=== PATIENT | female | born 1955 | race Caucasian/White ===

== ENCOUNTER 2018-12-26 08:59 | Day surgery (SDC) | payer MEDICARE, OTHER ==
[~2018-12-26] VITALS: Ht 147.3 cm; Wt 70.7 kg
[2018-12-26] MEDS ORDERED: LOSA50TA14 PO (09:29)
[2018-12-26] MEDS ORDERED: METO25TA4 PO (09:29)
[2018-12-26] MEDS ORDERED: LEVO125T7 PO (09:29)
[2018-12-26] MEDS ORDERED: METF-163 PO (09:29)
[2018-12-26] MEDS ORDERED: ASPI325T30 PO (09:29)
[2018-12-26] MEDS ORDERED: ATOR40TA68 PO (09:29)
[2018-12-26 09:30] VITALS: Ht 147.3 cm; Wt 70.7 kg
[2018-12-26 09:51] VITALS: BP 129/62; PULSE 68; RESP 18
--- NOTE | 2018-12-26 10:00 | PREAC ---
Date/Time of Note Date/Time of Note DATE: 12/26/18 TIME: 09:59 Anesthesia Eval and Record Evaluation Time Pre-Procedure Interview DATE: 12/26/18 TIME: 09:59 Age 63 Sex female NPO: 8 hrs Preoperative diagnosis ABDOMINAL PAIN, CHANGE IN BOWEL HABITS Planned procedure EGD, COLONOSCOPY Past Medical History Past Medical History: Includes Cardio: HTN, Dyslipidemia Endo: Diabetes, Hypothyroid Surgery & Anesthesia Issues No known issue Meds Anticoagulation: No Beta Melanie within 24 hr: No Reason Beta Melanie not given: Pt. not on B-Melanie Reported Medications Aspirin* (Aspirin*) 325 Mg Tablet, 81 MG PO DAILY, TAB 12/26/18 Levothyroxine Sodium* (Levothyroxine Sodium*) 125 Mcg Tablet, 125 MCG PO BEFORE BREAKFAST, #30 TAB 12/26/18 Atorvastatin* (Atorvastatin*) 40 Mg Tablet, 20 MG PO QHS, #30 TAB 12/26/18 Metformin HCl (Fortamet) 500 Mg Tab.er.24, 500 MG PO, TAB 12/26/18 Losartan Potassium* (Losartan Potassium*) 50 Mg Tablet, 50 MG PO BID, TAB 12/26/18 Metoprolol Tartrate* (Lopressor*) 25 Mg Tablet, 25 MG PO DAILY, #60 TAB 12/26/18 Meds reviewed: Yes Allergies Coded Allergies: No Known Allergy (Unverified , 12/26/18) Allergies Reviewed: Yes Labs/Studies Labs Reviewed: Reviewed by anesthesiologist test: N/A Pre-procedure Exam Last vitals Vital Signs Date Temp Pulse Resp B/P (MAP) Pulse Ox O2 O2 Flow FiO2 Time Delivery Rate 12/26/18 98.0 68 18 129/62 94 Room Air 09:51 (84) Airway: Adequate mouth opening, Adequate thyromental dist Mallampati: Mallampati II Teeth: Normal Lung: Normal Heart: Normal ASA Physical Status ASA physical status: 2 Emergency: None Planned Anesthetic General/MAC: MAC Planned Pain Management Parenteral pain med Pre-operative Attestations Prior to commencing anesthesia and surgery, the patient was re-evaluated, there was verification of: *The patient's identity *The results of appropriate recent lab work and preoperative vital signs *The above evaluation not changing prior to induction *Anesthetic plan, risk benefits, alternative and complications discussed with patient/family; questions answered; patient/family understands, accepts and wishes to proceed. Dale Bowers M.D. Dec 26, 2018 10:00
[2018-12-26] MEDS ORDERED: PROPOFOL 200 MG INJ ONE (10:01)
[2018-12-26] MEDS ORDERED: PROPOFOL 40 ML ONE (10:01)
[2018-12-26] MEDS ORDERED: LIDOCAINE 100 MG SYRINGE ONE (10:01)
[2018-12-26] MEDS ORDERED: FENTAnyl 50 MCG/ML VIAL ONE (10:01)
--- NOTE | 2018-12-26 10:43 | PAC ---
Date/Time of Note Date/Time of Note DATE: 12/26/18 TIME: 10:43 Post-Anesthesia Notes Post-Anesthesia Note Last documented vital signs Vital Signs Date Temp Pulse Resp B/P (MAP) Pulse Ox O2 O2 Flow FiO2 Time Delivery Rate 12/26/18 98.0 68 18 129/62 94 Room Air 09:51 (84) Activity: WNL Respiratory function: WNL Cardiovascular function: WNL Mental status: Baseline Pain reasonably controlled: Yes Hydration appropriate: Yes Nausea/Vomiting absent: Yes Dael Bowers M.D. Dec 26, 2018 10:43
[2018-12-26 11:05] VITALS: BP 120/57; PULSE 60; RESP 16
== END 2018-12-26 16:12 | disposition home or self-care (01) ==
LOC: GIL 08:59
PROVIDERS: ATTEND Internal Medicine Gastroenterology
DX: R19.4 Change in bowel habit (principal); K64.8 Other hemorrhoids; K57.30 Diverticulosis of large intestine without perforation or abscess without bleeding; K29.30 Chronic superficial gastritis without bleeding; E11.9 Type 2 diabetes mellitus without complications; E78.5 Hyperlipidemia, unspecified; I10 Essential (primary) hypertension; E03.9 Hypothyroidism, unspecified; Z79.84 Long term (current) use of oral hypoglycemic drugs
CPT/HCPCS: 43239; 45378; 82962; 88305; 88312; J2001; J3010